=== PATIENT | male | born 1960 | race Native Hawaiian/Other Pacific Islander ===

== ENCOUNTER 2020-10-16 13:16 | Outpatient (CLI) | payer OTHER | END 2020-10-16 19:42 | disposition home or self-care (01) | LOC: LAB 13:16 | PROVIDERS: ATTEND Nurse Practitioner Family | DX: J06.9 Acute upper respiratory infection, unspecified (principal); Z11.59 Encounter for screening for other viral diseases | CPT/HCPCS: 87635; G2023; U0003 ==

== ENCOUNTER 2021-01-08 16:33 | Outpatient (CLI) | payer OTHER ==
[2021-01-08 17:16] LABS: PLATELET COUNT 210 K/uL (142-355)
[2021-01-08 17:25] LABS: POTASSIUM 4.1 mmol/L (3.6-5.2)
== END 2021-01-08 20:35 | disposition home or self-care (01) ==
LOC: LAB 16:33
PROVIDERS: ATTEND Nurse Practitioner Family
DX: Z00.00 Encounter for general adult medical examination without abnormal findings (principal); Z79.899 Other long term (current) drug therapy; I10 Essential (primary) hypertension; E78.49 Other hyperlipidemia; R53.83 Other fatigue; R53.81 Other malaise; I25.10 Atherosclerotic heart disease of native coronary artery without angina pectoris
CPT/HCPCS: 80053; 80061; 82306; 82607; 83036; 84439; 84443; 85027

== ENCOUNTER 2021-01-20 15:17 | Outpatient (CLI) | payer OTHER | END 2021-01-20 19:57 | disposition home or self-care (01) | LOC: RAD 15:17 | PROVIDERS: ATTEND Nurse Practitioner Family | DX: R06.02 Shortness of breath (principal) ==